=== PATIENT | male | born 1935 | race Caucasian/White ===

== ENCOUNTER 2023-04-30 01:05 | Inpatient (IN) | payer OTHER, SELFPAY ==
[2023-04-29 22:12] VITALS: BP 138/77; BMI 21.0
[2023-04-29 22:13] VITALS: BP 138/77
[2023-04-29 22:25] LABS: % Basophils 0.2 % (0-2); % Eosinophils 0.4 % (0-6); % Immature Granulocytes 0.4 % (0-0.5); % Lymphocytes 46.9 % (20.5-51.1); % Monocytes 2.9 % (1.7-9.3); % Neutrophils 49.2 % (42.2-75.2); Absolute Eosinophils 0.1 10^3/uL (0-0.7); Absolute Immature Granulocytes 0.1 10^3/uL (0-0.05); Absolute Lymphocytes 6.7 10^3/uL (1.2-3.4); Absolute Monocytes 0.4 10^3/uL (0.1-0.6); Hematocrit 31.7 % (39.0-52.0); Hemoglobin 10.6 g/dL (13.0-18.0); Mean Corp Hgb Conc. 33.4 g/dL (33.0-37.0); Mean Corpuscular Hgb 28.6 pg (27.0-31.0); Mean Corpuscular Volume 85.4 fL (80.0-94.0); Mean Platelet Volume 8.6 fL (7.4-10.4); Nucleated Red Blood Cells % 0 % (-); Platelet Count 149 10^3/uL (130-400); Red Blood Cell Count 3.71 10^6/uL (4.70-6.10); Red Cell Dist. Width 14.6 % (11.5-14.5); White Blood Cell Count 14.3 10^3/uL (4.8-10.8)
--- NOTE | 2023-04-29 22:40 | ED.GENMED ---
History of Present Illness
General
Chief Complaint: Fall
Source: patient and family (Daughter)
Exam Limitations: none
Time Seen by Provider: 04/29/23 22:22
Travel History
Have you had any contact with someone who has COVID-19?: No
Do you have any symptoms of coronavirus? Fever > 100 degrees, chills, cough, shortness of breath, sore throat, loss of taste or smell, muscle aches, or headache?: No
History of Present Illness
History of Present Illness:
This is a 87 year old male that comes in by ambulance with c/o fall. Daughter states that he was going to the BR when he fell. States that he was on the floor. patient states that he falls all the time. States that he hit his head but he doesn't
know what he hit. Denies any LOC. Denies any fever, chills, chest pain, SOB, abd pain, nausea, vomiting, diarrhea, headache, dizziness, urinary burning.
Past History
Past History
ED Past Medical History: Cancer (Skin Cancer), HTN, NIDDM and Other (cataracts, Diverticulitis, Renal calculus. Anema, Dizziness, Neuropathy, UTI, )
ED Past Surgical History: Cholecystectomy and Other (mohs skin cancer removal, cataracts, Hernia)
Social History
Tobacco: Smoker (Cigars)
Alcohol: Occasional
Drug: None
Personal:
Living: with family
Review of Systems
Review of Systems
All Other Systems: ROS reviewed and negative except as documented in HPI and ROS
Constitutional: Reports no symptoms; Denies fever or chills
EENT: Reports no symptoms
Respiratory: Reports no symptoms; Denies cough or trouble breathing
Cardiac: Reports no symptoms; Denies chest pain
ABD/GI: Reports no symptoms; Denies abdominal pain, nausea, vomiting or diarrhea
: Denies dysuria, frequency or urgency
Musculoskeletal: Reports joint pain (Right knee pain)
Skin: Reports other (Skin tears)
Neurological: Reports no symptoms; Denies dizzy or headache
Psychiatric: Reports no symptoms
Phy Exam
General Physical Exam
General Presentation: no apparent distress
General age: appears stated age
General Skin: warm
General Habitus: elderly
General Mental: usual mental status
General Hydration: dry mucous membranes
ENT Exam
ENT Exam: TM's normal, pharynx normal and neck supple
Eye Exam
Eye Exam: EOMI
Cardiovascular Exam
Cardiovascular Exam: regular rate/rhythm, no edema and normal peripheral pulses
Pulmonary Exam
Pulmonary Exam: lungs clear, no respiratory distress, no rales, chest non tender, no crackles, no rhonchi, no wheezing and no cough
Gastrointestinal Exam
Gastrointestinal Exam: non tender, soft, no organomegaly, no pulsatile mass, non distended and other (Hypoactive bowel sounds, Small umbilical hernia)
Musculoskeletal Exam
Musculoskeletal Exam: full ROM, no edema and other (Negative for discomfort with flexion of the knee's, negative for cervical neck tenderness. )
Skin Exam
Skin Exam: normal color, warm/dry, no rash, no petechia and other (Skin tear to right posterior shoulder, Skin tear on the left distal forearm and proximal forearm, Abrasion right knee, Patient has old bruising over his arms and legs. )
Psychiatric Exam
Psychiatric Exam: normal mood/affect
Course
Orders/Labs/Results
Orders:
Orders
04/29/23 22:10
CT Head W/o Iv Contrast Urgent
Comment:
Reason For Exam: fall, possible LOC
04/29/23 22:12
Complete Blood Count/With Diff Urgent
Comprehensive Metabolic Panel Urgent
04/29/23 22:14
Lidocaine/Epinephrine/Tetracai [Let Topical Anesthetic Gel] 3 ml .ROUTE .STK-MED ONE
04/29/23 22:45
Knee, Right 4 or More Views [CR Knee- Right 4 Or More View*] Urgent
Comment:
Reason For Exam: Fall, Knee pain
04/29/23 22:50
Urinalysis Reflex To Culture Urgent
Date Specimen was Collected: 04/29/23
Time Specimen was Collected: 22:44
Urine Microscopic Reflex Cult Urgent
Urine Culture Urgent
LYLA Source: U
Specimen Description:
Date Specimen was Collected: 04/29/23
Time Specimen was Collected: 22:44
04/29/23 23:04
Acetaminophen 1000MG/100Ml [Ofirmev] 1,000 mg in 100 ml IV ONCE
Acetaminophen IV Indication:: ED Narcotic Naive Pt-ONCE
04/29/23 23:09
CefTRIAXone [Rocephin] 1,000 mg IV NOW STA
04/29/23 23:29
Case Management Consult ONCE
Case Management Consult: Senior Living Placement
Abnormal Lab Results
04/29/23 04/29/23
22:12 22:50
WBC 14.3 H 10^3/uL
(4.8-10.8)
RBC 3.71 L 10^6/uL
(4.70-6.10)
Hgb 10.6 L g/dL
(13.0-18.0)
Hct 31.7 L %
(39.0-52.0)
RDW 14.6 H %
(11.5-14.5)
Abs Immat Gran (auto) 0.1 H 10^3/uL
(0-0.05)
Absolute Neuts (auto) 7.0 H 10^3/uL
(1.4-6.5)
Absolute Lymphs (auto) 6.7 H 10^3/uL
(1.2-3.4)
Sodium 129 L mmol/L
(135-145)
BUN 28 H mg/dl
(9-20)
Glucose 352 H mg/dl
(70-99)
Calcium 10.3 H mg/dl
(8.4-10.2)
Urine Ketones Trace A
(Negative)
Ur Occult Blood Reflex 3+ A
(Negative)
Leukocyte Esterase Rfl 2+ A
(Negative)
Urine WBC (Reflex) >100 A /HPF
(0-5)
Urine Glucose 1+ A
(Negative)
Urine Albumin (Reflex) 2+ A
(Neg - Trace)
04/29/23 22:12
04/29/23 22:12
Leukocytosis, H/H low, Hyponatremia, Dehydration. Glucose nonfasting. Urine positive for infection.
Vital Signs
Initial and Last Documented VS:
Initial Vital Signs
Temp Pulse Resp BP Pulse Ox
97.5 F 85 18 138/77 99
04/29/23 22:12 04/29/23 22:12 04/29/23 22:12 04/29/23 22:12 04/29/23 22:12
Last Documented Vital Signs
Temp Pulse Resp BP Pulse Ox
97.5 F 85 18 138/77 99
04/29/23 22:12 04/29/23 22:12 04/29/23 22:12 04/29/23 22:12 04/29/23 22:12
MDM/Problems Addressed
Differential Diagnosis Includes:
UTI, Neuropathy,
MDM/Problems Addressed:
This is a 87 year old male that comes in by ambulance with c/o fall. Daughter states that he was going to the bathroom and he fell. Unsure what patient hit his head on. States that he needs placement in an assissted living.
Will check labs. CT head and get Urine.
Back into see patient. Explained that patient would be admitted. Patient has a UTI, low sodium and frequent falls. Family is very upset as they want patient to go to assisted living. Up till know patient has been refusing. Explained that at this
point he is a danger to himself and that they may need to have patient Declared incompetent . Will put in a Consult for Case Management to assist the family. Hospitalist notified.
Chronic conditions affecting care:
Neuropathy,
Acute Exacerbation and/or Progression of Chronic Illness:
NA
*Radiology
Radiology exam reviewed: preliminary read by ED provider (Right knee- Negative for fracture or dislocation. ) and radiology read reviewed (CT head- NO acute intracranial abnormalities. Findings compatible with diffuse cortical atrophy with mild
nonspecific white matter changes as described above )
*Pulse Oximetry
Patient hypoxic: no
*Java Developer With Security Clearance Interpretation
Rate: normal
Heart Rate: 96
Rhythm: sinus
*Critical Care Note
Total Time (30-74mins, 75-104mins- exclusive of procedures): Not Applicable
ED Attending Note
-
Portions of this chart may have been created with voice recognition software.� Occasional wrong word or��sound alike� substitutions may have occurred due to the inherent limitations of voice recognition software.
Discharge Plan
Departure
Patient Disposition: Admit
Date of Disposition: 04/29/23
Time of Disposition: 23:33
Admit to: Med/Surg
Presentation/result/management discussed w/ accepting MD/DO: Hospitalist
Patient with high blood pressure during this ER visit?: Yes
Condition: Good
Covid-19: Negative COVID-19
Discharge Problem:
Urinary tract infection, Hyponatremia, Frequent falls
Prescriptions:
No Action
tamsulosin 0.4 MG capsule
0.4 mg PO BID
simvastatin 10 MG tablet
10 mg PO HS
glimepiride 1 MG tablet
1 mg PO DAILY
cholecalciferol (vitamin D3) 2,000 UNITS tablet
5,000 units PO HS
omega 8-uqf-tjg-fish oil [Fish Oil] 1 EACH capsule
1 ea PO BID
magnesium oxide 400 MG capsule
400 mg PO HS
spironolactone 12.5 MG tablet
12.5 mg PO DAILY 30 Days Qty: 30 0RF
carvedilol 3.125 MG tablet
3.125 mg PO BID 30 Days Qty: 60 0RF
potassium chloride 10 mEq Capsule, Extended Release
10 meq PO BID
metformin 500 mg tablet
500 mg PO BID
cefdinir 300 mg capsule
300 mg PO BID 6 Days Qty: 12 0RF
Interventions
Interventions:
*General Assessment Last Done: 04/29/23 22:12
ED- Fall Risk Assessment Last Done: 04/29/23 22:12
ED-Musculoskeletal Assessment Last Done: 04/29/23 22:12
ED- Neurological Assessment Last Done: 04/29/23 22:12
ED-Skin Assessment Last Done: 04/29/23 22:17
[2023-04-29 22:52] VITALS: BP 126/83
[2023-04-29 22:53] LABS: ALT (SGPT) 15 U/L (0-50); AST (SGOT) 20 U/L (17-59); Albumin 3.7 g/dl (3.5-5.0); Alkaline Phosphatase 114 U/L (38-126); Blood Urea Nitrogen 28 mg/dl (9-20); Calcium 10.3 mg/dl (8.4-10.2); Carbon Dioxide 22 mmol/L (22-30); Chloride 100 mmol/L (98-107); Estimated Creatinine Clearance 42 ml/min; Glucose 352 mg/dl (70-99); Sodium 129 mmol/L (135-145); Total Bilirubin 0.7 mg/dl (0.2-1.3); Total Protein 6.9 g/dl (6.3-8.2); eGFR 59.26
[2023-04-29 22:55] LABS: Urine Albumin 2+ (Neg - Trace); Urine Bilirubin Negative (Negative); Urine Character Slightly Cloudy (Clear); Urine Color Yellow; Urine Glucose 1+ (Negative); Urine Ketone Trace (Negative); Urine Leukocyte 2+ (Negative); Urine Nitrite Negative (Negative); Urine Occult Blood 3+ (Negative); Urine Urobilinogen Negative (Neg - 1+)
[2023-04-29] MEDS: OFIRMEV 100 IV (23:06)
[2023-04-29 23:07] LABS: Urine White Cell >100 /HPF (0-5)
[2023-04-29] MEDS: ROCEPHIN 1000 MG IV (23:15)
[2023-04-30] VITALS (10 sets, daily range): BP systolic 96–139; BP diastolic 61–80; O2SAT 99–100; BMI 20.3; BMI 21.0; BMI 22.0
--- NOTE | 2023-04-30 00:35 | HPS.HSE ---
Family Physician
-
Family Physician: Torin Contreras
Chief Complaint
-
fall
History of Present Illness
HPI: 87 year old male PMH Type 2 diabetes, Essential hypertension, BPH; p/w fall at home. Patient stated that he may have tripped over the stairs. He cannot remember if he passed out or not. He is a poor historian.
According to ED note, daughter stated that pt fell going to the bathroom and was on the floor. Daughter not present in the ER at this assessment.
Patient admits to hitting his head, but cannot give details.
He denies to other symptoms.
On exam, he has ecchymosis on the right forehead and right leg.
Medical History
Past Medical History
Past Medical History: Reports Other
Additional Past Medical History:
Dementia
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
Hypertension
BPH
Past Surgical History: Reports Cholecystectomy
Social History
Tobacco: Other (cigar, occasionally)
Alcohol: None
Personal:
Living: With Family
Family History
Family History: Not pertinent and Other
Allergies / Home Medications
Allergies reflects when Allergies were last updated in [facility].
Home Medications with original date entered in [facility]
Allergy/Medication List:
Allergies
Allergy/AdvReac Type Severity Reaction Status Date / Time
oxycodone HCl [From Percocet] Allergy Unknown Verified 04/29/23 22:09
Home Medications
tamsulosin 0.4 mg capsule 0.4 mg PO DAILY Urinary Issue 12/21/15
cholecalciferol (vitamin D3) 50 mcg (2,000 unit) tablet 5,000 units PO HS Supplement 03/18/19
magnesium oxide 400 mg PO HS Supplement 03/18/19
omega 5-mrx-oca-fish oil 300 mg-1,000 mg capsule (Fish Oil) 1 ea PO DAILY Supplement 03/18/19
simvastatin 10 mg tablet 10 mg PO HS High Cholesterol 03/18/19
carvedilol 3.125 mg tablet 3.125 mg PO BID 30 days #60 tabs 03/23/19
potassium chloride 10 mEq capsule,extended release 10 meq PO BID Electrolyte Repletion 09/08/22
metformin 500 mg tablet 1,000 mg PO BID Diabetes 09/09/22
cranberry 500 mg capsule 500 mg PO BID 04/29/23
finasteride 5 mg tablet 5 mg PO DAILY 04/29/23
multivitamin 1 tab PO DAILY 04/29/23
Review of Systems
-
Constitutional: Reports See HPI
Physical Exam
Vital Signs
Vital Signs
Temp Pulse Resp BP Pulse Ox
36.4 C 85 18 138/77 99
04/29/23 22:12 04/29/23 22:12 04/29/23 22:12 04/29/23 22:12 04/29/23 22:12
Physical Exam
General: Well Developed, Well Nourished, No Apparent Distress, Comfortable and Conversant
HEENT: NormoCephalic, Moist mucous membranes and Atraumatic
Respiratory: Clear and Non Labored Respirations; No Accessory Resp Muscle Use
Cardiac: S1/S2 and Regular Rhythm; No Murmur or Rub
GI: Soft, Non Tender, Non Distended and Normal Bowel Sounds; No Organomegaly
Rectal: Deferred by Provider
Musculoskeletal: No Clubbing
Skin: Other (Right forehead bruising)
Neuro: Awake and Alert
Psych: Calm
Laboratory Results
-
04/29/23 22:12
04/29/23 22:12
Laboratory Results
Total Bilirubin 0.7 mg/dl (0.2-1.3) 04/29/23 22:12
AST 20 U/L (17-59) 04/29/23 22:12
ALT 15 U/L (0-50) 04/29/23 22:12
Alkaline Phosphatase 114 U/L (38-126) 04/29/23 22:12
Data Reviewed
-
CT Scan: Report Reviewed by me
Lab Data: Labs Reviewed by me
Impression/Plan
-
HPI: 87 year old male PMH Type 2 diabetes, Essential hypertension, BPH; p/w fall at home. Patient stated that he may have tripped over the stairs. He cannot remember if he passed out or not. He is a poor historian.
According to ED note, daughter stated that pt fell going to the bathroom and was on the floor. Daughter not present in the ER at this assessment.
Patient admits to hitting his head, but cannot give details.
He denies to other symptoms.
On exam, he has ecchymosis on the right forehead and right leg.
A/P:
# Mechanical fall at home
# Frequent falls
CT head No acute intracranial abnormalities
Follow R knee XR
PT OT eval
# UTI
follow urine culture
cont Ceftriaxone
check kidney US
Check bladder scan straight cath protocol
# Hyponatremia, may be due to dehydration with concurrent hypercalcemia
check urine sodium level, urine Osm, serum Osm
give 250 cc only (prior echo with low LVEF at 15%).
monitor sodium and calcium level
# Type 2 diabetes
cover with ISS
# Essential hypertension
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
# Benign prostatic hypertrophy
cont home med
DVT ppx: Lovenox SQ
FC
[2023-04-30 00:50] LABS: Osmolality Urine 490 mOsm/kg (300-900)
[2023-04-30 01:14] LABS: Osmolality Serum 295 mOsm/kg (275-300)
[2023-04-30] MEDS: NSS 250 IV (01:30)
[2023-04-30 01:49] LABS: Urine Sodium 72 mmol/L (30-90)
[2023-04-30 06:28] LABS: Hematocrit 29.7 % (39.0-52.0); Hemoglobin 9.8 g/dL (13.0-18.0); Mean Corpuscular Hgb 28.8 pg (27.0-31.0); Mean Corpuscular Volume 87.4 fL (80.0-94.0); Mean Platelet Volume 9.2 fL (7.4-10.4); Platelet Count 135 10^3/uL (130-400); Red Cell Dist. Width 14.6 % (11.5-14.5); White Blood Cell Count 12.4 10^3/uL (4.8-10.8)
[2023-04-30 07:11] LABS: Blood Urea Nitrogen 27 mg/dl (9-20); Calcium 9.4 mg/dl (8.4-10.2); Carbon Dioxide 26 mmol/L (22-30); Chloride 103 mmol/L (98-107); Estimated Creatinine Clearance 46 ml/min; Glucose 327 mg/dl (70-99); Magnesium 1.6 mg/dl (1.6-2.3); Potassium 4.7 mmol/L (3.5-5.1); Sodium 131 mmol/L (135-145); eGFR > 60.00
[2023-04-30] MEDS: PROSCAR 5 MG PO (08:31)
[2023-04-30] MEDS: FLOMAX 0.400000000000000022 MG PO (08:31)
[2023-04-30] MEDS: COREG 3.125 MG PO (08:31)
--- NOTE | 2023-04-30 10:31 | CM ---
Addendum entered by La Chan RN 04/30/23 15:37:
CM met with patient in room. As per patient's daughter, they spoke with floor case advocate and provided SNF choices. CM care of patient transferred to floor CM.
Addendum entered by La Chan RN 04/30/23 14:23:
CM spoke with patient's daughter who stated that patient has been declining in function for about 6 months. Patient is resistant to placement of assisted living. Patient's family would like patient placed in AL immediately from the hospital. They do
not have a facility for AL in mind. CM advised that patient may need rehab prior to transition to AL as per PT recommendations.
Patient's daughter stated that they would prefer [facility] for [facility]. Patient's other daughter Jacey is arriving to discuss discharge planning further.
CM advised daughter that guardianship would have to be pursued by family if patient continues to refuse care.
CM will meet with patient's daughter to discuss.
Addendum entered by La Chan RN 04/30/23 13:46:
CM left message for daughter to discuss discharge planning.
Original Note:
CM reviewed medical records. CM met with patient in room. Patient confirmed demographics. Patient lives independently with in a 55+ community. Patient has had a history of VN with [facility]. Patient denied history of SNF. No ambulation aides at
this time. Patient is active with his PCP. Patient uses [facility] in [place].
CM discussed PT recommendations for SNF. Patient refused, but he would be agreeable to VN and PT in the home. CM sent referral via [facility] to [facility]. Awaiting acceptance.
PLAN: Home with VN
[2023-04-30 12:02] LABS: Glucose - Point of Care 421 mg/dl (70-99)
--- NOTE | 2023-04-30 12:11 | W.PN.HOSP.TC ---
Today's Communication/Plan
-
await culture
monitor poc
wound care
Assessment / Plan
Assessment / Plan
HPI: 87 year old male PMH Type 2 diabetes, Essential hypertension, BPH; p/w fall at home.� Patient stated that he may have tripped over the stairs. He cannot remember if he passed out or not.� He is a poor historian.
According to ED note, daughter stated that pt fell going to the bathroom and was on the floor. Daughter not present in the ER at this assessment.
Patient admits to hitting his head, but cannot give details.
He denies to other symptoms.
On exam, he has ecchymosis on the right forehead and right leg.
A/P:
# Mechanical fall at home
# Frequent falls
CT head No acute intracranial abnormalities
Follow R knee XR
PT OT eval-SNF.
#Sloughing of skin
wound consult
#Suspected UTI
follow urine culture
cont Ceftriaxone
check kidney US normal
Check bladder scan straight cath protocol
# Hyponatremia, may be due to dehydration with concurrent hypercalcemia and hyperglycemia
Na improved.
give 250 cc only (prior echo with low LVEF at 15%).
monitor sodium and calcium level
# Type 2 diabetes
cover with ISS
accuchecks.
# Essential hypertension
resume CUSTOMER ADVOCATE meds with holding parameters coreg,
# Benign prostatic hypertrophy
cont home med flomax
DVT ppx: Lovenox SQ
FC
Anticipated Discharge: 24 - 48 hours
Subjective/Interval History
-
Date of Service: April 30, 2023
states of R arm burning sensation
tolerating diet
aox3
denies chest pain or lightheadedness or dizziness
Objective Data
-
Labs:
Laboratory Results
04/30/23 04/30/23
06:09 12:02
WBC 12.4 H
Hgb 9.8 L
Hct 29.7 L
Plt Count 135
Sodium 131 L
Potassium 4.7
Chloride 103
Carbon Dioxide 26
BUN 27 H
Creatinine 1.1
Glucose 327 H Pending
Calcium 9.4
Vital Signs:
Vital Signs
Temp Pulse Resp BP Pulse Ox
97.5 F 75 24 109/73 99
04/30/23 08:05 04/30/23 08:05 04/30/23 08:05 04/30/23 09:02 04/30/23 09:04
I&O
04/29/23 04/30/23 05/01/23
06:59 06:59 06:59
Output Total 50 / 50
Balance -50 / -50
Physical Exam
-
General: Well Developed and No Apparent Distress
HEENT: Normocephalic, Atraumatic and Moist Mucous Membranes
Respiratory: Clear to Auscultation
Cardiac: Regular Rhythm and S1/S2; Negative Murmur, Rub or Gallop
GI: Soft, Nontender, Nondistended and Normal Bowel Sounds; Negative Organomegaly
Rectal: Deferred by Provider
Musculoskeletal: No Clubbing, No Cyanosis and No Edema
Skin: Warm, Rash (bruising on forehead R side noted ) and Other (multiple skin sloughing noted on RUE. LE. )
Neuro: Awake, AO x 3, No Motor Deficits and Nonfocal/Grossly Intact
Psych: Calm
[2023-04-30 12:56] LABS: Glucose 409 mg/dl (70-99)
[2023-04-30] MEDS: NOVOLOG FLEXPEN-LOW RESISTANCE 6 UNITS SC (13:05)
--- NOTE | 2023-04-30 13:13 | PTCARENOTE ---
Lunchtime bedside glucose 'RR HI.' Venous glucose drawn, [id number]. Per hyperglycemia protocol, 6 units Novolog given, see MAR. Will need repeat bedside glucose in 2 hrs per protocol. Spoke to receiving RN Jone, made aware. Novolog pen tubed to
4 [address].
--- NOTE | 2023-04-30 13:24 | WOUNDNOTE ---
RIGHT UPPER CHEST
--- NOTE | 2023-04-30 13:24 | WOUNDNOTE ---
RIGHT UPPER ARM/SHOULDER
--- NOTE | 2023-04-30 13:25 | WOUNDNOTE ---
RIGHT UPPER ARM
--- NOTE | 2023-04-30 13:27 | WOUNDNOTE ---
RIGHT ANTERIOR LEG
--- NOTE | 2023-04-30 13:35 | PN.DE.MGMTRT ---
Insulin Management
- -
04/30/2023: Diabetes Management Consult:
87 year old male admitted s/p fall at home. PMH includes: HTN, HLD, Dementia, CHF, BPH and T2DM.
Pt is a poor historian and unable to interview due to cognitive impairment.
Chart review indicates that he was taking Metformin 1000mg BID at home.
No recent A1C, last obtained 09/09/22 and was 8.2%. Cr 1.1, eGFR>60.
Spoke to Pt's Dtr [facility]- who reported that pt was on Glimepiride 1mg daily up until 2 weeks ago when his PCP dc'd it due to frequent falls, attributing the falls to hypoglycemia. Pt was not monitoring his sugars at home.
Pt's dtr states that he will not be able to self administer insulin or monitor his blood sugars at home due to declined cognitive status and that his who is of advanced age can not take care of the pt either. The family is hoping that he will
be discharged to SNF or AL after this hospitalization as it is not safe for him to continue living at home.
Glucose has remained >300 since admission and trended up to 421 pre-lunch today and he received 6 units of low corrective insulin.
Will give 1 time dose of Aspart 10 units now as glucose elevated >400.
Start AC NovoLog 6 units and Lantus 12 units @ HS. Check 3 AM glucose level. Cont low corrective insulin
Resume Metformin 1000 mg BID. Update A1C. Accucheks AC/HS.
Will reassess after A1C results, ideally would prefer oral regimen due to complexities of insulin adm, otherwise, will cont with insulin if dispo is to SNF or facility.
Diabetes History
- -
Type of Diabetes: 2
Pre-Admission Diabetes Regimen
04/29/23 04/30/23
22:12 06:09
Creatinine 1.2 1.1
Insulin Pump Settings
IP Diabetes Regimen
04/29/23 04/30/23 04/30/23
22:12 06:09 12:01
Glucose 352 H 327 H
POC Glucose 421 H
04/30/23
12:26
Glucose 409 H
POC Glucose
Patient Education
--- NOTE | 2023-04-30 13:49 | WOUNDNOTE ---
[facility] RN NOTE: Reviewed note and met with patient. Patient is [employer] [place], poor historian. Reports he walks with cane and had fall at home. He has multiple skin tears and abrasions throughout his body and skin is very dry on both UE and LE. He reports fair
appetite and demonstrated ability to turn. Patient demonstrated continence and using urinal during assessment. He has a stage 1 PI on sacrum . Frequent repositioning and off-loading of sacrum recommended by this feature writer. A 5 layer foam dressing was
applied to sacrum. Steri strips applied to left elbow and right shoulder skin tears to secure skin flaps. See worklist for all wound care provided to additional skin tears on right chest wall, left wrist, right leg, right knee. Patient tolerated all
wound care well. Recommend apply Aquaphor to dry UE and LE. Patient to be transferred to [facility] after wound care assessment. LONNY Velázquez. Orders confirmed with hospitalist. Will continue to follow as needed.
--- NOTE | 2023-04-30 14:00 | PTCARENOTE ---
Pt arrives in Er stretcher. required one person assist to bathroom then hospital bed. pt aaox3 although forgetful. bed alarm initiated. urinal provided in reach along with belongings. bed low. rails up x 3. pt oriented to unit. no pressing
issues at the moment. care plan continues to be followed.
--- NOTE | 2023-04-30 14:11 | PTCARENOTE ---
Confirmed w/ Liv, diabetes education FAMILY NURSE, that patient is to received 10 units novolog in addition to the 6units he has already received per protocol. Patient has since been transferred to [facility], receiving RN Jone aware.
[2023-04-30] MEDS: NOVOLOG FLEXPEN 10 UNITS SC (14:14)
[2023-04-30 15:08] LABS: Glucose - Point of Care 270 mg/dl (70-99)
--- NOTE | 2023-04-30 15:45 | CM ---
Addendum entered by Alexandria Sandoval 04/30/23 16:17:
[facility] willing to accept referral pending bed availability
Original Note:
Met with daughterMayra #[phone] at patient's bedside to discuss PT SNF recommendation.
SNF list provided; preferences are #1 [facility], #2 [facility]
Referrals submitted via [facility]
[2023-04-30 16:39] LABS: Glucose - Point of Care 129 mg/dl (70-99)
[2023-04-30] MEDS: NOVOLOG FLEXPEN-LOW RESISTANCE SC (16:55)
[2023-04-30] MEDS: NOVOLOG FLEXPEN 6 UNITS SC (17:51)
[2023-04-30] MEDS: GLUCOPHAGE 1000 MG PO (17:56)
[2023-04-30] MEDS: LOVENOX 40 MG SC (17:56)
[2023-04-30 21:45] LABS: Glucose - Point of Care 61 mg/dl (70-99)
[2023-04-30] MEDS: VITAMIN D3 (cholecalciferol) 125 MCG PO (21:45)
[2023-04-30] MEDS: LIPITOR 10 MG PO (21:45)
[2023-04-30] MEDS: COREG PO (21:56)
[2023-04-30] MEDS: LANTUS SC (21:56)
[2023-04-30 22:28] LABS: Glucose - Point of Care 96 mg/dl (70-99)
[2023-05-01 00:01] VITALS: BMI 22.0
[2023-05-01] MEDS: STERILE WATER FOR INJECTION 10 ML IV ×2 (00:13→23:27)
[2023-05-01] MEDS: ROCEPHIN 1000 MG IV ×2 (00:13→23:27)
[2023-05-01 00:29] LABS: Glucose - Point of Care 144 mg/dl (70-99)
[2023-05-01 03:10] LABS: Glucose - Point of Care 170 mg/dl (70-99)
[2023-05-01 07:32] LABS: Glucose - Point of Care 210 mg/dl (70-99)
[2023-05-01 07:34] LABS: Blood Urea Nitrogen 26 mg/dl (9-20); Calcium 9.1 mg/dl (8.4-10.2); Carbon Dioxide 23 mmol/L (22-30); Chloride 100 mmol/L (98-107); Estimated Creatinine Clearance 44 ml/min; Glucose 198 mg/dl (70-99); Potassium 4.1 mmol/L (3.5-5.1); Sodium 134 mmol/L (135-145); eGFR > 60.00
[2023-05-01 07:35] VITALS: BP 125/77
[2023-05-01] MEDS: COREG 3.125 MG PO ×2 (07:35→21:45)
[2023-05-01] MEDS: FLOMAX 0.400000000000000022 MG PO (07:35)
[2023-05-01] MEDS: THERAGRAN 1 TABLET PO (07:35)
[2023-05-01] MEDS: PROSCAR 5 MG PO (07:35)
[2023-05-01] MEDS: GLUCOPHAGE 1000 MG PO ×2 (07:35→17:14)
[2023-05-01] MEDS: NOVOLOG FLEXPEN-LOW RESISTANCE 2 UNITS SC ×2 (08:12→11:28)
[2023-05-01] MEDS: NOVOLOG FLEXPEN 6 UNITS SC (08:12)
[2023-05-01 09:11] LABS: Glycohemoglobin (HgbA1c) 8.3 % (4.0-5.6)
[2023-05-01 10:54] LABS: Glucose - Point of Care 200 mg/dl (70-99)
--- NOTE | 2023-05-01 11:25 | PN.DE.MGMTRT ---
Insulin Management
- -
04/30/2023: Diabetes Management Consult:
87 year old male admitted s/p fall at home. PMH includes: HTN, HLD, Dementia, CHF, BPH and T2DM.
Pt is a poor historian and unable to interview due to cognitive impairment.
Chart review indicates that he was taking Metformin 1000mg BID at home.
No recent A1C, last obtained 09/09/22 and was 8.2%. Cr 1.1, eGFR>60.
Spoke to Pt's Dtr [facility]- who reported that pt was on Glimepiride 1mg daily up until 2 weeks ago when his PCP dc'd it due to frequent falls, attributing the falls to hypoglycemia. Pt was not monitoring his sugars at home.
Pt's dtr states that he will not be able to self administer insulin or monitor his blood sugars at home due to declined cognitive status and that his who is of advanced age can not take care of the pt either. The family is hoping that he will
be discharged to SNF or AL after this hospitalization as it is not safe for him to continue living at home.
Glucose has remained >300 since admission and trended up to 421 pre-lunch today and he received 6 units of low corrective insulin.
Will give 1 time dose of Aspart 10 units now as glucose elevated >400.
Start AC NovoLog 6 units and Lantus 12 units @ HS. Check 3 AM glucose level. Cont low corrective insulin
Resume Metformin 1000 mg BID. Update A1C. Accucheks AC/HS.
Will reassess after A1C results, ideally would prefer oral regimen due to complexities of insulin adm, otherwise, will cont with insulin if dispo is to SNF or facility.
05/01/2023 Diabetes Management Follow up
Patient glucose 61 @ 9:44 pm yesterday. Lantus held. Fasting glucose 210. Will reduce AC novolog to 4 units with low corrective insulin. Will continue lantus 12 units @ hs and obtain a 3AM glucose.
Diabetes History
- -
Type of Diabetes: 2
Pre-Admission Diabetes Regimen
05/01/23
06:36
Creatinine 1.1
Lab Results
Hemoglobin A1c 8.3 % (4.0-5.6) H 04/30/23 06:09
Insulin Pump Settings
IP Diabetes Regimen
04/30/23 04/30/23 04/30/23
12:01 12:26 15:07
Glucose 409 H
POC Glucose 421 H 270 H
04/30/23 04/30/23 04/30/23
16:37 21:44 22:26
Glucose
POC Glucose 129 H 61 L 96
05/01/23 05/01/23 05/01/23
00:25 03:07 06:36
Glucose 198 H
POC Glucose 144 H 170 H
05/01/23 05/01/23
07:27 10:53
Glucose
POC Glucose 210 H 200 H
Patient Education
[2023-05-01] MEDS: NOVOLOG FLEXPEN 4 UNITS SC ×2 (11:27→16:47)
--- NOTE | 2023-05-01 11:51 | W.PN.HOSP.TC ---
Today's Communication/Plan
-
IV abx
await Ucx
eventually SNF
Assessment / Plan
Assessment / Plan
General: Well Developed and No Apparent Distress
HEENT: Normocephalic, Atraumatic and Moist Mucous Membranes
Respiratory: Clear to Auscultation
Cardiac: Regular Rhythm and S1/S2; Negative Murmur, Rub or Gallop
GI: Soft, Nontender, Nondistended and Normal Bowel Sounds; Negative Organomegaly
Rectal: Deferred by Provider
Musculoskeletal: No Clubbing, No Cyanosis and No Edema
Skin: Warm, Rash (bruising on forehead R side noted ) and Other (multiple skin sloughing noted on RUE. LE. )
Neuro: Awake, AO x 3, No Motor Deficits and Nonfocal/Grossly Intact
Psych: Calm
HPI: 87 year old male PMH Type 2 diabetes, Essential hypertension, BPH; p/w fall at home.� Patient stated that he may have tripped over the stairs. He cannot remember if he passed out or not.� He is a poor historian.
According to ED note, daughter stated that pt fell going to the bathroom and was on the floor. Daughter not present in the ER at this assessment.
Patient admits to hitting his head, but cannot give details.
He denies to other symptoms.
On exam, he has ecchymosis on the right forehead and right leg.
A/P:
# Mechanical fall at home
# Frequent falls
CT head No acute intracranial abnormalities
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 OP f/u
PT OT eval-SNF.
#Sloughing of skin
wound consult
#Suspected UTI
follow urine culture-awaiting
cont Ceftriaxone
check kidney US normal
Check bladder scan straight cath protocol
# Hyponatremia, may be due to dehydration with concurrent hypercalcemia and hyperglycemia
Na improved.
give 250 cc only (prior echo with low LVEF at 15%).
monitor sodium and calcium level
# Type 2 diabetes uncontrolled
cover with ISS
A1C 8.3
Started on lantus 12u and novolog 4u
accuchecks.
# Essential hypertension
resume [employer] meds with holding parameters coreg,
# Benign prostatic hypertrophy
cont home med flomax
DVT ppx: Lovenox SQ
FC
Anticipated Discharge: Within 24 hours
Subjective/Interval History
-
Date of Service: May 01, 2023
Walking in room
no overnight events
Objective Data
-
Labs:
Laboratory Results
05/01/23
06:36
Sodium 134 L
Potassium 4.1
Chloride 100
Carbon Dioxide 23
BUN 26 H
Creatinine 1.1
Glucose 198 H
Calcium 9.1
Vital Signs:
Vital Signs
Temp Pulse Resp BP Pulse Ox
97.3 F 69 18 125/77 98
05/01/23 07:35 05/01/23 07:35 05/01/23 07:35 05/01/23 07:35 05/01/23 07:35
I&O
04/30/23 05/01/23 05/02/23
06:59 06:59 06:59
Intake Total 180 / 180
Output Total 400 / 400
Balance -220 / -220
--- NOTE | 2023-05-01 12:22 | CM ---
CM reviewed chart. Per Hospitalist, patient not stable for discharge today. CM awaiting response of SNF regarding bed availability ([facility] and [facility] [place] CM will continue to follow for discharge planning needs.
Plan; SNF pending accepting facility, will require auth-[employer] patient.
[2023-05-01 14:25] VITALS: BP 94/66; PULSE 81; O2SAT 100
[2023-05-01 14:58] VITALS: BP 128/67
[2023-05-01 16:30] LABS: Glucose - Point of Care 165 mg/dl (70-99)
[2023-05-01 16:37] LABS: Glucose - Point of Care 178 mg/dl (70-99)
[2023-05-01] MEDS: NOVOLOG FLEXPEN-LOW RESISTANCE 1 UNITS SC (16:48)
[2023-05-01] MEDS: LOVENOX 40 MG SC (17:14)
[2023-05-01 18:30] VITALS: BMI 22.3
[2023-05-01 21:12] LABS: Glucose - Point of Care 183 mg/dl (70-99)
[2023-05-01] MEDS: LANTUS 0.119999999999999996 UNITS SC (21:44)
[2023-05-01] MEDS: LIPITOR 10 MG PO (21:45)
[2023-05-01] MEDS: VITAMIN D3 (cholecalciferol) 125 MCG PO (21:53)
[2023-05-01 23:42] VITALS: BP 120/65
[2023-05-02 06:00] VITALS: BMI 21.9
[2023-05-02 07:31] VITALS: BP 128/66
[2023-05-02 08:07] LABS: Glucose - Point of Care 145 mg/dl (70-99)
--- NOTE | 2023-05-02 08:28 | PN.DE.MGMTRT ---
Insulin Management
- -
04/30/2023: Diabetes Management Consult:
87 year old male admitted s/p fall at home. PMH includes: HTN, HLD, Dementia, CHF, BPH and T2DM.
Pt is a poor historian and unable to interview due to cognitive impairment.
Chart review indicates that he was taking Metformin 1000mg BID at home.
No recent A1C, last obtained 09/09/22 and was 8.2%. Cr 1.1, eGFR>60.
Spoke to Pt's Dtr [facility]- who reported that pt was on Glimepiride 1mg daily up until 2 weeks ago when his PCP dc'd it due to frequent falls, attributing the falls to hypoglycemia. Pt was not monitoring his sugars at home.
Pt's dtr states that he will not be able to self administer insulin or monitor his blood sugars at home due to declined cognitive status and that his who is of advanced age can not take care of the pt either. The family is hoping that he will
be discharged to SNF or [place] after this hospitalization as it is not safe for him to continue living at home.
Glucose has remained >300 since admission and trended up to 421 pre-lunch today and he received 6 units of low corrective insulin.
Will give 1 time dose of Aspart 10 units now as glucose elevated >400.
Start AC NovoLog 6 units and Lantus 12 units @ HS. Check 3 AM glucose level. Cont low corrective insulin
Resume Metformin 1000 mg BID. Update A1C. Accucheks AC/HS.
Will reassess after A1C results, ideally would prefer oral regimen due to complexities of insulin adm, otherwise, will cont with insulin if dispo is to SNF or facility.
05/01/2023 Diabetes Management Follow up
Patient glucose 61 @ 9:44 pm yesterday. Lantus held. Fasting glucose 210. Will reduce AC NovoLog to 4 units with low corrective insulin.
Will continue Lantus 12 units @ hs and obtain a 3AM glucose.
05/02/2023: Diabetes Management F/U:
Insulin doses adjusted yesterday due to hypoglycemia. Glucose improved, no recurrent hypoglycemia, HS 183, received Lantus 12 units, FBG 145
Will make no changes to current regimen: Lantus 12 units @ hs, NovoLog 4 units AC with low corrective insulin.
Will follow.
Diabetes History
- -
Type of Diabetes: 2 requiring insulin
Pre-Admission Diabetes Regimen
Lab Results
Hemoglobin A1c 8.3 % (4.0-5.6) H 04/30/23 06:09
Insulin Pump Settings
IP Diabetes Regimen
05/01/23 05/01/23 05/01/23
10:53 16:28 16:34
POC Glucose 200 H 165 H 178 H
05/01/23 05/02/23
21:11 08:06
POC Glucose 183 H 145 H
Meal type: Lunch
Amount consumed: 100%
Patient Education
[2023-05-02] MEDS: FLOMAX 0.400000000000000022 MG PO (09:23)
[2023-05-02] MEDS: NOVOLOG FLEXPEN-LOW RESISTANCE SC ×2 (09:23→16:45)
[2023-05-02] MEDS: COREG 3.125 MG PO (09:24)
[2023-05-02] MEDS: GLUCOPHAGE 1000 MG PO ×2 (09:24→17:34)
[2023-05-02] MEDS: HYDROPHOR 1 APPLIC TOPICAL (09:24)
[2023-05-02] MEDS: THERAGRAN 1 TABLET PO (09:24)
[2023-05-02] MEDS: PROSCAR 5 MG PO (09:24)
[2023-05-02] MEDS: NOVOLOG FLEXPEN 4 UNITS SC ×3 (09:25→17:35)
--- NOTE | 2023-05-02 11:19 | CM ---
Addendum entered by Fernanda Patel 05/02/23 15:58:
CM met with patient and daughter Sondra mcconnell, IMM signed, placed in chart. Discussed plan for discharge to [facility] tomorrow, daughter to provide transport.
Addendum entered by Fernanda Patel 05/02/23 15:39:
CM spoke with Jeimy from [facility] Admissions, can accept patient tomorrow for SNF. Auth approved for skilled level 1 through [employer] 05/03-05/09, next review 05/09 to [phone] option 5, fax [phone]. Auth #[id number]. Daughter to
provide transportation tomorrow morning. TT sent to Hospitalist for update.
[facility]- Report: [phone] ext [phone]
Addendum entered by Fernanda Patel 05/02/23 14:27:
CM received update from Jeimy at [facility], received financial application but awaiting bank statements. Will update CM once decision is made if [facility] can accept for SNF with transition to LTC.
Original Note:
CM spoke with Jeimy [phone] from [facility], per Jeimy, they need to see the patients financial/application completed in order to accept patient for SNF and transition to LTC. CM spoke with patients daughterSondra, Sondra reports her
sisters visitor information assistant will get the financials completed and sent to facility within the next thirty minutes. CM cannot start auth until [facility] confirms they can accept patient, CM made facility aware that patient is clear for discharge today.
Jeimy reports once they receive information she will present it to [employer] for review. TT to Hospitalist to provide update. CM will continue to follow for discharge planning needs.
Plan; [facility] SNF pending facility receiving financial information, awaiting confirmation from facility, then auth.
--- NOTE | 2023-05-02 11:25 | W.PN.HOSP.TC ---
Today's Communication/Plan
-
P.o. antibiotics on discharge
Monitor glucose
Continue insulin
Await placement
Assessment / Plan
Assessment / Plan
General: Well Developed and No Apparent Distress
HEENT: Normocephalic, Atraumatic and Moist Mucous Membranes
Respiratory: Clear to Auscultation
Cardiac: Regular Rhythm and S1/S2; Negative Murmur, Rub or Gallop
GI: Soft, Nontender, Nondistended and Normal Bowel Sounds; Negative Organomegaly
Rectal: Deferred by Provider
Musculoskeletal: No Clubbing, No Cyanosis and No Edema
Skin: Warm, Rash (bruising on forehead R side noted ) and Other (multiple skin sloughing noted on RUE and LE covered in dressing now)
Neuro: Awake, AO x 3, No Motor Deficits and Nonfocal/Grossly Intact
Psych: Calm
HPI: 87 year old male PMH Type 2 diabetes, Essential hypertension, BPH; p/w fall at home.� Patient stated that he may have tripped over the stairs. He cannot remember if he passed out or not.� He is a poor historian.
According to ED note, daughter stated that pt fell going to the bathroom and was on the floor. Daughter not present in the ER at this assessment.
Patient admits to hitting his head, but cannot give details.
He denies to other symptoms.
On exam, he has ecchymosis on the right forehead and right leg.
A/P:
# Mechanical fall at home
# Frequent falls
CT head No acute intracranial abnormalities
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 OP f/u
PT OT eval-SNF.
#Sloughing of skin
wound consult
# Streptococcus UTI
cont Ceftriaxone
check kidney US normal
# Hyponatremia, may be due to dehydration with concurrent hypercalcemia and hyperglycemia
Na improved.
give 250 cc only (prior echo with low LVEF at 15%).
monitor sodium and calcium level
# Type 2 diabetes uncontrolled
cover with ISS
A1C 8.3
Started on lantus 12u and novolog 4u
accuchecks. POC 145
# Essential hypertension
resume [employer] meds with holding parameters coreg,
# Benign prostatic hypertrophy
cont home med flomax
DVT ppx: Lovenox SQ
FC
Dispo PT/OT SNF. Medically stable. Await placement. Case management aware.
Anticipated Discharge: Today
Subjective/Interval History
-
Date of Service: May 02, 2023
Resting in bed comfortably
No overnight events
Objective Data
-
Vital Signs:
Vital Signs
Temp Pulse Resp BP Pulse Ox
97.5 F 60 16 128/66 99
05/02/23 07:31 05/02/23 09:24 05/02/23 07:31 05/02/23 09:24 05/02/23 07:31
I&O
05/01/23 05/02/23 05/03/23
06:59 06:59 06:59
Intake Total 180 / 180 960 / 960
Output Total 400 / 400 720 / 720
Balance -220 / -220 240 / 240
[2023-05-02 11:54] VITALS: BP 107/63
[2023-05-02 12:10] LABS: Glucose - Point of Care 209 mg/dl (70-99)
[2023-05-02] MEDS: NOVOLOG FLEXPEN-LOW RESISTANCE 2 UNITS SC (12:30)
--- NOTE | 2023-05-02 14:22 | PN.CDI ---
CDI
- -
CDI:
Physician Documentation Request
Admit Date: 04/30/23 01:05
Dear Doctor Rell,
Please review the following and provide your response in the progress notes.
Clinical Indicators:
Pt admitted with Fall at home/ UTI/Hyponatremia
Documented per WOCN note 04/30, ' ..He has a stage 1 PI on sacrum .... Frequent repositioning and off-loading of sacrum recommended by this teletypewriter installer. A 5 layer foam dressing was applied to sacrum. ...'
Physician documentation of the type and location of wounds is required for compliant documentation. Based on the above clinical findings and your assessment, please provide the following in your progress note:
1. Location of the ulcer/wound, including laterality.
2. Type (etiology) of ulcer/wound:
- Pressure (decubitus) ulcer
- Non-pressure ulcer
- Other
Use of terms such as suspected, likely, concern for, or probable (associated with a specific diagnosis that is being evaluated, monitored, or treated as if it exists) are acceptable and can be coded in the inpatient setting, when documented at the
time of discharge.
Thank you,
Odalys Barksdale RN
CDI Specialist
[place] [facility]
Please use your independent medical judgment in providing your response.
*Source: National Pressure Ulcer Advisory Panel (NPUAP)
--- NOTE | 2023-05-02 14:24 | PN.CDI ---
CDI
- -
CDI:
Physician Documentation Request
Admit Date: 04/30/23 01:05
Dear Doctor Rell,
Please review the following and provide your response in the progress notes.
Clinical Indicators:
Pt admitted with fall/UTI/Hyponatremia
Progress note 05/02, ' Streptococcus UTI cont Ceftriaxone...'
On admit WBC 14.3, HR 127, RR 24
Please clarify which of the following most accurately describes the status of the patient's infection:
Sepsis-POA
- Systemic manifestations of infection, with 2 or more SIRS criteria which include:
- Fever >100.4 degrees F or hypothermia < 96.8 degrees F
- Leukocytosis - WBC > 12,000 or leukopenia - WBC < 4,000 or > 10% bands
- Tachycardia > 90 beats per minute
- Tachypnea - RR > 20 breaths per minute or PaCO2 , 32mmHg
Source: Merck Manual 2013
UTI only, Without Systemic Illness
Other
Use of terms such as suspected, likely, concern for, or probable (associated with a specific diagnosis that is being evaluated, monitored, or treated as if it exists) are acceptable and can be coded in the inpatient setting, when documented at the
time of discharge.
Thank you,
Odalys Barksdale RN
CDI Specialist
[place] [facility]
Please use your independent medical judgment in providing your response.
[2023-05-02 15:33] VITALS: BP 131/66
[2023-05-02 15:57] LABS: COVID-19 Antigen Negative (Negative)
[2023-05-02 16:45] LABS: Glucose - Point of Care 72 mg/dl (70-99)
[2023-05-02] MEDS: LOVENOX 40 MG SC (17:34)
[2023-05-02 21:17] LABS: Glucose - Point of Care 132 mg/dl (70-99)
[2023-05-02] MEDS: COREG PO (21:30)
[2023-05-02] MEDS: LANTUS 0.119999999999999996 UNITS SC (21:30)
[2023-05-02] MEDS: VITAMIN D3 (cholecalciferol) 125 MCG PO (21:30)
[2023-05-02] MEDS: LIPITOR 10 MG PO (21:30)
[2023-05-02] MEDS: STERILE WATER FOR INJECTION 10 ML IV (23:12)
[2023-05-02] MEDS: ROCEPHIN 1000 MG IV (23:12)
[2023-05-02 23:24] VITALS: BP 117/62
[2023-05-03 07:19] VITALS: BP 112/65
--- NOTE | 2023-05-03 08:22 | CM ---
Addendum entered by Fernanda Patel 05/03/23 10:44:
[facility]- Report: [phone] ext [phone]
Addendum entered by Fernanda Patel 05/03/23 10:41:
CM spoke with patients daughter Sondra, discussed 12:00 p.m. discharge. CM spoke with Jeimy from [facility] , updated with discharge time.
Original Note:
CM spoke with Jeimy from [facility], emailed auth approval information, faxed covid test to [phone]. CM reports daughter will provide transportation for patient upon discharge. CM will continue to follow for discharge planning needs.
Plan; [facility] SNF, daughter to provide transport.
[2023-05-03 08:30] LABS: Glucose - Point of Care 101 mg/dl (70-99)
[2023-05-03 08:34] LABS: % Basophils 0.3 % (0-2); % Eosinophils 0.5 % (0-6); % Immature Granulocytes 0.4 % (0-0.5); % Lymphocytes 71.3 % (20.5-51.1); % Monocytes 2.3 % (1.7-9.3); % Neutrophils 25.2 % (42.2-75.2); Absolute Basophils 0.1 10^3/uL (0-0.2); Absolute Eosinophils 0.1 10^3/uL (0-0.7); Absolute Immature Granulocytes 0.1 10^3/uL (0-0.05); Absolute Monocytes 0.4 10^3/uL (0.1-0.6); Absolute Neutrophils 3.9 10^3/uL (1.4-6.5); Hematocrit 30.2 % (39.0-52.0); Hemoglobin 9.9 g/dL (13.0-18.0); Mean Corp Hgb Conc. 32.8 g/dL (33.0-37.0); Mean Corpuscular Hgb 28.4 pg (27.0-31.0); Mean Corpuscular Volume 86.8 fL (80.0-94.0); Mean Platelet Volume 8.8 fL (7.4-10.4); Nucleated Red Blood Cells % 0 % (-); Platelet Count 159 10^3/uL (130-400); Red Blood Cell Count 3.48 10^6/uL (4.70-6.10); Red Cell Dist. Width 14.6 % (11.5-14.5); White Blood Cell Count 15.5 10^3/uL (4.8-10.8)
[2023-05-03] MEDS: NOVOLOG FLEXPEN-LOW RESISTANCE SC (08:42)
[2023-05-03] MEDS: COREG 3.125 MG PO (08:47)
[2023-05-03] MEDS: PROSCAR 5 MG PO (08:47)
[2023-05-03] MEDS: THERAGRAN 1 TABLET PO (08:47)
[2023-05-03] MEDS: GLUCOPHAGE 1000 MG PO (08:47)
[2023-05-03] MEDS: FLOMAX 0.400000000000000022 MG PO (08:47)
[2023-05-03] MEDS: HYDROPHOR 1 APPLIC TOPICAL (08:47)
[2023-05-03] MEDS: NOVOLOG FLEXPEN 4 UNITS SC (08:48)
[2023-05-03 08:53] LABS: Blood Urea Nitrogen 28 mg/dl (9-20); Calcium 8.7 mg/dl (8.4-10.2); Carbon Dioxide 25 mmol/L (22-30); Chloride 101 mmol/L (98-107); Estimated Creatinine Clearance 44 ml/min; Glucose 104 mg/dl (70-99); Potassium 3.9 mmol/L (3.5-5.1); Sodium 133 mmol/L (135-145); eGFR > 60.00
--- NOTE | 2023-05-03 11:01 | W.PN.HOSP.TC ---
Addendum entered and electronically signed by Gurpreet Zacarias MD 05/03/23 15:51:
Sepsis secondary to UTI present on admission
Stage I pressure injury on the sacrum present on admission
Original Note:
Today's Communication/Plan
-
po abx
dc to snf
Assessment / Plan
Assessment / Plan
General: Well Developed and No Apparent Distress
HEENT: Normocephalic, Atraumatic and Moist Mucous Membranes
Respiratory: Clear to Auscultation
Cardiac: Regular Rhythm and S1/S2; Negative Murmur, Rub or Gallop
GI: Soft, Nontender, Nondistended and Normal Bowel Sounds; Negative Organomegaly
Rectal: Deferred by Provider
Musculoskeletal: No Clubbing, No Cyanosis and No Edema
Skin: Warm, Rash (bruising on forehead R side noted ) and Other (multiple skin sloughing noted on RUE and LE covered in dressing now)
Neuro: Awake, AO x 3, No Motor Deficits and Nonfocal/Grossly Intact
Psych: Calm
HPI: 87 year old male PMH Type 2 diabetes, Essential hypertension, BPH; p/w fall at home.� Patient stated that he may have tripped over the stairs. He cannot remember if he passed out or not.� He is a poor historian.
According to ED note, daughter stated that pt fell going to the bathroom and was on the floor. Daughter not present in the ER at this assessment.
Patient admits to hitting his head, but cannot give details.
He denies to other symptoms.
On exam, he has ecchymosis on the right forehead and right leg.
A/P:
# Mechanical fall at home
# Frequent falls
CT head No acute intracranial abnormalities
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 OP f/u
PT OT eval-SNF.
#Sloughing of skin
wound consult
# Streptococcus UTI
cont Ceftriaxone switch to p.o. antibiotics on discharge.
check kidney US normal
#Leukocytosis
Likely multifactorial with UTI, stress
All cell lines increase. Remains afebrile. No cough. No diarrhea.
Continue with antibiotics and outpatient repeat CBC
# Hyponatremia, may be due to dehydration with concurrent hypercalcemia and hyperglycemia
Na improved.
give 250 cc only (prior echo with low LVEF at 15%).
monitor sodium and calcium level
Sodium stable at 133.
# Type 2 diabetes uncontrolled
cover with ISS
A1C 8.3
Started on lantus 12u and novolog 4u
accuchecks. POC 101
# Essential hypertension
resume [employer] meds with holding parameters coreg,
# Benign prostatic hypertrophy
cont home med flomax
DVT ppx: Lovenox SQ
FC
Dispo PT/OT SNF. Medically stable. SNF today.
More than 30 minutes spent in discharge including
Final examination of the patient
Summarizing hospital stay
Instructions for continuing care to all relevant caregivers
Preparation of discharge records, prescriptions, and referral forms
Total time spent (in minutes): 50
Anticipated Discharge: Today
Subjective/Interval History
-
Date of Service: May 03, 2023
resting in bed comfortable
afebrile
tolerating diet
Objective Data
-
Labs:
Laboratory Results
05/03/23
07:25
WBC 15.5 H
Hgb 9.9 L
Hct 30.2 L
Plt Count 159
Sodium 133 L
Potassium 3.9
Chloride 101
Carbon Dioxide 25
BUN 28 H
Creatinine 1.1
Glucose 104 H
Calcium 8.7
Vital Signs:
Vital Signs
Temp Pulse Resp BP Pulse Ox
97.5 F 66 19 112/65 96
05/03/23 07:19 02/17/24 07:19 05/03/23 07:19 05/03/23 07:19 05/03/23 07:19
I&O
05/02/23 05/03/23 05/04/23
06:59 06:59 06:59
Intake Total 960 / 960 1490 / 1490
Output Total 720 / 720 200 / 200
Balance 240 / 240 1290 / 1290
--- NOTE | 2023-05-03 11:07 | W.DCSUMMARY ---
Discharge Summary
Discharge Data
Date of Admission: 04/30/23
Date of Discharge: 05/03/23
-
Pending Results: No
Hospital Course
�87 year old male PMH Type 2 diabetes, Essential hypertension, BPH; p/w fall at home.� Patient stated that he may have tripped over the stairs. CT head No acute intracranial abnormalities. Patient with normal physical and Occupational Therapy.
Patient had right upper extremity skin sloughing which was eval by wound care. Patient was also found to have a CT on ceftriaxone was switched to p.o. Keflex. Kidney ultrasound within normal limits. Patient with mild hyponatremia which resolved.
Patient with severe uncontrolled diabetes and was started on Lantus and NovoLog. Patient will be discharged to assisted facility.
Discharge Plan
-
Patient Disposition: Long-Term/SNF
Discharge Diagnosis/Procedures: Mechanical falls
Streptococcus Urinary tract infection
Hyponatremia due to dehydration
Condition: Fair
Diet: 2 Gram Sodium, Diabetic, Carb Controlled and Restrict fluids to 48 oz
Activity: With assistance and As tolerated
Driving Restrictions: As prior to admission
Blood Work: CBC and BMP in 1 week with primary doctor.
Activity Restrictions/Additional Instructions:
Wound Care Instructions RIGHT CHEST, LEFT WRIST, LEFT ELBOW, RIGHT ANTERIOR LEG AND RIGHT KNEE- Clean with soap and water or normal saline. Apply adaptic and silicone border foam. Change Q 72 hours and PRN if loose or soiled.
RIGHT UPPER ARM AND SHOULDER- Clean with normal saline, apply adaptic, cover with ABD and wrap with chucho. Secure with spandage over arm and shoulder. Change Q 3 days and PRN if loose or soiled.
Stage 1 buttocks- Apply silicone border foam to sacrum. Change Q 72 hours and PRN if loose or soiled.
Encourage frequent repositioning/turning
Encourage good PO intake
Apply Aquaphor to dry skin on UE and LE
Keep HOB at 30 degrees with legs slightly elevated
Keep heels off-loaded with pillows or air cushion under calves
Follow up at wound care center call for an appointment.
Referrals:
Torin Contreras DO [Family Provider] - in less than 1 week
Prescriptions:
New
insulin aspart U-100 100 unit/mL (3 mL) Insulin Pen
4 unit SC AC 30 Days Qty: 3.6 0RF
Insulin Glargine Lantus [Lantus] 12 UNITS
Subcutaneous Insulin Syringe [Syringe-Insulin] 0 UNIT
As Directed mls/hr SC HS
Ordered By: Gurpreet Zacarias MD
Last Taken: 05/02/23 21:30 0.12 mls
cephalexin 500 mg capsule
500 mg PO QID 11 Days Qty: 44 0RF
Continued
tamsulosin 0.4 MG capsule
0.4 mg PO DAILY
simvastatin 10 MG tablet
10 mg PO HS
cholecalciferol (vitamin D3) 2,000 UNITS tablet
5,000 units PO HS
omega 7-upt-hku-fish oil [Fish Oil] 1 EACH capsule
1 ea PO DAILY
magnesium oxide 400 MG capsule
400 mg PO HS
carvedilol 3.125 MG tablet
3.125 mg PO BID 30 Days Qty: 60 0RF
metformin 500 mg tablet
1,000 mg PO BID
multivitamin Tablet
1 tab PO DAILY
finasteride 5 mg tablet
5 mg PO DAILY
cranberry 500 mg Capsule
500 mg PO BID
Discontinued
potassium chloride 10 mEq Capsule, Extended Release
10 meq PO BID
Discharge Orders:
Discharge Patient (As Directed); Ordered 05/03/23
Ordered By: Gurpreet Zacarias
Discharge Date and Time
Discharge Date/Time: 05/03/23 13:06
[2023-05-03 12:23] LABS: Glucose - Point of Care 112 mg/dl (70-99)
== END 2023-05-03 13:06 | DRG 872 ==
LOC: 4 EAST ACU 01:05
PROVIDERS: Clinical Nurse Specialist Family Health; Student in an Organized Health Care Education/Training Program; ADMITTING PHYSICIAN Internal Medicine; ATTENDING PHYSICIAN Hospitalist; EMERGENCY PHYSICIAN Student in an Organized Health Care Education/Training Program; FAMILY PHYSICIAN Family Medicine
DX: A41.9 Sepsis, unspecified organism (principal); E87.1 Hypo-osmolality and hyponatremia; N39.0 Urinary tract infection, site not specified; I50.22 Chronic systolic (congestive) heart failure; I11.0 Hypertensive heart disease with heart failure; N40.0 Benign prostatic hyperplasia without lower urinary tract symptoms; W18.30XA Fall on same level, unspecified, initial encounter; Z90.49 Acquired absence of other specified parts of digestive tract; E86.0 Dehydration; E83.52 Hypercalcemia; B95.5 Unspecified streptococcus as the cause of diseases classified elsewhere; R29.6 Repeated falls; E11.65 Type 2 diabetes mellitus with hyperglycemia; E11.36 Type 2 diabetes mellitus with diabetic cataract; L89.151 Pressure ulcer of sacral region, stage 1; Z11.52 Encounter for screening for COVID-19
CPT/HCPCS: 70450; 73564; 76775; 80048; 80053; 81003; 81015; 82947; 82962; 83036; 83735; 83930; 83935; 84300; 85025; 85027; 87070; 87077; 87086; 87147; 87186; 87205; 87811; 96374; 96375; 97163; 97167; 97530; 97535; 99285